=== PATIENT | female | born 1960 | race Caucasian/White ===

== ENCOUNTER 2017-04-16 09:30 | Inpatient (IN) | payer OTHER ==
[~2017-04-16] VITALS: Ht 170.2 cm; Wt 64.9 kg
--- NOTE | ~2017-04-16 | HC ---
[facility] [place] [address] CONSULTATION Name: EMMY MURCIA Room #: 422-P [facility] IN ..#: [id number] Admission: 04/16/17 Attend Phys: Sumit Oropeza MD Discharge: Date of : 60 Report #: [id number] THIS REPORT FOR: //name// CC: Sumit Oropeza DATE OF SERVICE: 04/16/2017 REFERRING PROVIDER: Sumit Oropeza M.D. REASON FOR CONSULTATION: Abdominal pain. HISTORY OF PRESENT ILLNESS: A 56-year-old female in her usual state of health until this morning when she awoke with severe periumbilical pain and has complaints or recent diarrhea. The patient states nausea accompanied the pain and she has had no appetite and decided to present to Dr. Oropeza's office for evaluation. Workup in the form of laboratories and a CT scan of the abdomen and pelvis were obtained. The patient's CT showed a dilated inflamed appendix with periappendiceal stranding, all consistent with acute appendicitis. As such, the patient has been admitted and I have been asked to evaluate for definitive surgical management. PAST MEDICAL HISTORY: None. ALLERGIES: No known drug allergies. FAMILY HISTORY: Reviewed and noncontributory. SOCIAL HISTORY: The patient does not utilize tobacco, alcohol or illicit drugs. She is accompanied by her today. REVIEW OF SYSTEMS: GENERAL: The patient denies nocturnal fevers or chills. HEENT: No change in vision, change in hearing. NECK: No swelling or difficulty swallowing. HEART: No chest pain, palpitations. LUNGS: No cough or shortness of breath. ABDOMEN: Abdominal pain with nausea. GENITOURINARY: No dysuria or hematuria. ENDOCRINE: No polyuria, polydipsia. HEMATOLOGIC: No history of bleeding or easy bruising. EXTREMITIES: No history weakness or limited range of motion. NEUROLOGIC: No history of syncope or near syncopal episodes. SKIN AND INTEGUMENT: No history of abnormal lesions or moles. PSYCHIATRIC: No history of anxiety or depression. PHYSICAL EXAMINATION: [facility] [address] [place] [address] CONSULTATION Name: EMMY MURCIA Room #: 422-P [facility] IN M.R.#: [id number] Admission: 04/16/17 Attend Phys: Sumit Oropeza MD Discharge: Date of : 60 Report #: [id number] VITAL SIGNS: Temperature 97.9, pulse 44, respirations 18, blood pressure 104/50. GENERAL: Alert and oriented, in no acute distress. HEENT: Normocephalic, atraumatic. Pupils equal, round, reactive to light. NECK: Supple, without lymphadenopathy. Trachea midline. HEART: Regular rate and rhythm. LUNGS: Clear to auscultation bilaterally. ABDOMEN: Soft, nondistended. She is tender to palpation in the periumbilical region as well as the right lower quadrant with mild guarding. She has a positive psoas and positive Rovsing's signs. GENITOURINARY: Normal external female genitalia. EXTREMITIES: No clubbing, cyanosis or edema. NEUROLOGIC: Cranial nerves 2-12 are grossly intact. PSYCHIATRIC: Normal mood and affect. SKIN AND INTEGUMENT: No abnormal lesions or moles. LABORATORY AND X-RAY DATA: CT scan of the abdomen and pelvis as per HPI shows a dilated fluid filled appendix with markedly periappendiceal stranding consistent with acute appendicitis. There is no evidence of perforation or abscess at this time on imaging. ASSESSMENT AND PLAN: A 56-year-old female with what appears to be acute appendicitis. The patient will be kept n.p.o., given IV fluid rehydration and IV antibiotics in the form of Zosyn and we will proceed to the operating room at the first available opportunity for laparoscopic appendectomy. Risks, benefits and alternatives of that procedure have been discussed with the patient in detail and she agrees to proceed as outlined. I sincerely appreciate this consult. I will follow closely and leave any further recommendations in the patient's chart as appropriate. <ELECTRONICALLY SIGNED> By: Sampson Hernandez MD, FACS 04/17/17 [id number] Sampson Hernandez MD, FACS /nt
--- NOTE | ~2017-04-16 | S ---
[facility] [place] [address] SURGICAL PATH RPT PROCEDURE Name: EMMY MURCIA Room #: 422-P DIS IN M.R.#: [id number] Admission: 04/16/17 Date of : 60 Discharge: 04/17/17 Report #: [id number] Path Case #: [id number] PATHOLOGY REPORT COLLECTION DATE: 04/16/2017 RECEIVED DATE: 04/16/2017 SUBMITTING PHYS: Dr. Sumit Oropeza OTHER PHYS: Dr. Sampsno Henrandez SPECIMEN(S) RECEIVED: A.Appendix * * * * * * * * * * * * FINAL DIAGNOSIS: "Appendix", appendectomy: - Acute suppurative appendicitis. - Appendiceal tip with focal endosalpingiosis. (CLW:pit; 04/19/2017) PATHOLOGIST: Leslie Richmond M.D. REPORT ELECTRONICALLY SIGNED BY: Leslie Richmond M.D. DATE/TIME: 04/19/2017 22:35 * * * * * * * * * * * * GROSS PATHOLOGY: Received in formalin labeled "Emmy Murcia, appendix," is an appendix measuring 9.5 cm in length and up to 0.8 cm in diameter with a small amount of attached mesoappendix. The serosal surface is pink-hyman to dusky hyman-benson in appearance. Sectioning reveals a patent to dilated lumen filled with fecal material. Machine Rough Rounder sections are submitted in cassette A1. (CAA; 04/17/2017) After initial microscopic examination, the remainder the appendix is submitted from proximal to distal aspects in cassettes A2 through A6. (CAA; 04/18/2017) CLINICAL HISTORY: Acute appendicitis INITIAL CPT CODE(S): A; 07848 Professional services performed by [facility] at [facility] [address] , [place] [address] [facility] [address] [place] [address] SURGICAL PATH RPT PROCEDURE Name: EMMY MURCIA Room #: 422-P [facility] IN .R.#: [id number] Admission: 04/16/17 Date of : 60 Discharge: 04/17/17 Report #: [id number] Path Case #: [id number] Technical services performed by [facility] at [address] [place] [address], [facility] [address] [address]. [facility] [address] [place] [address] PHONE: [phone] DIRECTOR: Payam Griffith M.D. * * * END OF REPORT * * *
--- NOTE | ~2017-04-16 | O ---
[facility] [place] [address] OPERATIVE REPORT Name: EMMY MURCIA Room #: 422-P [facility] IN M.R.#: [id number] Admission: 04/16/17 Attend Phys: Sumit Oropeza MD Discharge: Date of : 60 Report #: [id number] THIS REPORT FOR: //name// CC: Sumit Oropeza DATE OF SERVICE: 04/16/2017 PREOPERATIVE DIAGNOSIS: Acute appendicitis. POSTOPERATIVE DIAGNOSES: Acute suppurative appendicitis with contained focal perforation. PROCEDURE PERFORMED: Laparoscopic appendectomy with washout. SURGEON: Sampson Hernandez MD. SHEETER MACHINE OPERATOR: JADEN Gaines. ANESTHESIA: General endotracheal anesthesia. ESTIMATED BLOOD LOSS: Minimal (less than 5 mL). COMPLICATIONS: None appreciated. SPECIMENS: Appendix to pathology. INDICATIONS: The patient is a 56-year-old female who awoke from sleep this morning with severe periumbilical to right lower quadrant abdominal pain and nausea. The patient was evaluated with laboratories and a CT scan of the abdomen and pelvis, which ultimately showed a dilated fluid filled appendix with periappendiceal stranding consistent with acute appendicitis. As such, indication was for the above-mentioned procedures today. DESCRIPTION OF PROCEDURE: After explaining the risks, benefits and alternatives of the procedure with the patient in detail in the preoperative holding area and obtaining written consent, the patient was brought to the operating room and placed supine on the operating room table. After conducting a thorough timeout procedure verifying correct patient and procedure, the patient was given general endotracheal anesthesia. Once adequate anesthesia was obtained, sequential compression devices were hooked up to pneumatic compression device. She was given a preoperative dose of antibiotics in line with the SCIP protocol. The patient's abdomen was now prepped and draped in standard surgical sterile fashion. A 5 mL of 0.5% Marcaine with epinephrine was used to anesthetize the skin in the infraumbilical location. A #15 bladed scalpel was used to create a 1 cm vertical incision at this location following her prior incision site from her laparoscopic hysterectomy. A 12 mm Visiport was now placed over 0-degree [address] [address] OPERATIVE REPORT Name: EMMY MURCIA Room #: 422-P [facility] IN ..#: [id number] Admission: 04/16/17 Attend Phys: Sumit Oropeza MD Discharge: Date of : 60 Report #: [id number] 5-mm laparoscope and was introduced through this incision site. Once intraabdominal placement was verified visually, the obturator for the trocar and laparoscope were both removed and the abdomen was insufflated to 15 mmHg using carbon dioxide gas. The laparoscope was changed to a 5-mm 30-degree laparoscope, which was reintroduced through this trocar. The entire abdomen was evaluated to ensure no injury upon entry. I now placed two additional 5 mm working ports. The first was placed in the suprapubic location and the second was placed in left lower quadrant. Both additional trocars were placed under direct vision after anesthetizing the skin at each location with 5 mL of 0.5% Marcaine with epinephrine and I had created small skin nicks using #15 bladed scalpel. The patient was now placed in steep Trendelenburg position with the right side elevated and I proceeded to easily identify a markedly inflamed dilated edematous appendix. The appendix was elevated and a window was made near its healthy base in the mesoappendix with a [place] dissector. Once this window was created the laparoscope was removed, changed to left lower quadrant trocar and the [place] 45 mm stapler with a blue load was placed in the infraumbilical trocar. One blade of the stapler was passed through the window in the mesoappendix. The stapler was clamped and fired completely transecting the appendix at its healthy base. The stapler was removed, the laparoscope was placed back in the infraumbilical trocar and the appendix was elevated. I then used the Harmonic scalpel to transect the mesoappendix, staying close to the level of the appendiceal wall. As I was taking down the mesoappendix, I entered into an area that appeared to have a focal contained perforation within the mesentery of the appendix and this was resected in full as well as having suction teasel setter to fully evacuate out all of the murky fluid. Once I had fully come across the mesoappendix, I freed the entire specimen and the laparoscope was placed back in the left lower quadrant trocar. The EndoCatch bag was placed in the infraumbilical trocar and specimen was placed within it under direct vision. The pursestring suture was drawn and specimen was removed from the abdomen under direct vision. I then placed a fascial closing suture around the infraumbilical fascial incision using 0 PDS suture on a Suman-Janey needle under direct vision. This was not tied down at this juncture, but was tagged with the hemostat and trocar was replaced under direct vision. Laparoscope was placed back through the infraumbilical trocar and the staple line was evaluated. The staple line itself was seated nicely at the base of the appendix at the level of the cecum. Evaluation of the mesoappendix showed complete hemostasis and no further remaining murky fluid or abscess cavity. I irrigated the right lower quadrant with 3 liters of normal saline and it ran clear throughout. All fluid was suctioned out as best as possible. The mesoappendix was slightly raw, although not bleeding whatsoever. However, I did elect to place Aurora in the resection bed for assistance with long-term hemostasis. One final evaluation showed no further pathology. The abdomen was fully desufflated. The 0 PDS suture was tied down. All remaining trocars were removed under direct vision. A 4-0 Monocryl was used in a standard subcuticular fashion for all skin incisions and Dermabond glue was applied to all skin wounds. At the end of the procedure, all instrument, needle and sponge counts [facility] [address] [place] [address] OPERATIVE REPORT Name: EMMY MURCIA Room #: 422-P [facility] IN M.R.#: [id number] Admission: 04/16/17 Attend Phys: Sumit Oropeza MD Discharge: Date of : 60 Report #: [id number] were correct. The patient tolerated the procedure without incident, was awakened in the operating room and transitioned to the recovery room in stable condition with no apparent complications. <ELECTRONICALLY SIGNED> By: Sampson Hernandez MD, FACS 04/17/17 0652 [id number] 1716 Sampson Hernandez MD, FACS /nt
[2017-04-16 12:00] VITALS: BP 110/56
[2017-04-16 12:54] VITALS: BP 118/62
[2017-04-16 16:40] VITALS: BP 104/50
[2017-04-16 17:15] VITALS: BP 104/50
[2017-04-16 20:00] VITALS: BP 103/52
[2017-04-17 04:14] VITALS: BP 91/51
[2017-04-17 06:07] LABS: HEMATOCRIT 33.1 % (37.0-47.0); HEMOGLOBIN 11.3 gm/dL (12.0-15.0); MCH 30.8 pg (26.0-34.0); MCHC 34.1 g/dL (28.0-37.0); MCV 90.3 fL (80.0-100.0); RBC 3.67 mil/uL (4.20-5.00); RDW 14.2 % (10.5-14.5); WBC 13.9 thou/uL (4.0-11.0)
[2017-04-17 06:21] LABS: CALCIUM 8.2 mg/dL (8.5-10.1); CREATININE 0.8 mg/dL (0.6-1.0)
[2017-04-17 07:34] VITALS: BP 93/56
[2017-04-17] MEDS ORDERED: HYDROCODON-ACE1 EAC7 PO (07:48)
[2017-04-17] MEDS ORDERED: AUGMENTIN 875-1 EACH PO (07:50)
[2017-04-17 11:23] VITALS: BP 93/56
== END 2017-04-17 14:18 | disposition home or self-care (01) | DRG 340 ==
LOC: CAT 09:30 → 4E 11:15 → ENTRNSPT 04-17 14:10 → EDTRNSPTSTS 04-17 14:15 → 4E 04-17 14:18
PROVIDERS: Surgery
PROC: 0DTJ4ZZ Resection of Appendix, Percutaneous Endoscopic Approach (ICD-10-PCS; principal; 2017-04-16)
DX: K35.2 Acute appendicitis with generalized peritonitis (principal); Z91.09 Other allergy status, other than to drugs and biological substances
CPT/HCPCS: 10783; 50010; 50101; 50249; 50411; 50555; 50558; 50739; 50740; 50900; 50962; 51489; 51975; 52265; 52287; 53307; 54022; 54118; 56525; 56526; 62110; 62900; 70005

== ENCOUNTER → 2021-09-16 | Outpatient (CLI) | payer OTHER ==
[~2021-09-16] MED LIST: AUGMENTIN 875-1 EACH PO; HYDROCODON-ACE1 EAC7 PO
== END ==
LOC: CAT 08:20
PROVIDERS: ATTEND Family Medicine
DX: Z13.6 Encounter for screening for cardiovascular disorders (principal); I25.10 Atherosclerotic heart disease of native coronary artery without angina pectoris; E78.00 Pure hypercholesterolemia, unspecified